=== PATIENT | female | born 1985 | race Caucasian/White ===

== ENCOUNTER 2019-05-27 06:46 | Outpatient (CLI) | payer BC, MEDICARE | END 2019-05-27 06:47 | disposition home or self-care (01) | LOC: LABBT 06:46 | PROVIDERS: ATTEND Obstetrics & Gynecology | DX: Z01.812 Encounter for preprocedural laboratory examination (principal); N92.0 Excessive and frequent menstruation with regular cycle | CPT/HCPCS: 84703; 85027; 86850; 86900; 86901 ==

== ENCOUNTER 2019-06-01 05:54 | Day surgery (SDC) | payer BC, MEDICARE ==
[2019-05-27 14:23] VITALS: BMI 24.3
[2019-05-27 15:21] LABS: Hemoglobin 13.7 g/dL (12.0-16.0); Mean Corpuscular HGB CONC 34.2 g/dL (32.0-36.0); Mean Corpuscular Hemoglobin 31.7 pg (27.0-31.0); Mean Corpuscular Volume 92.7 fL (78.0-98.0); Mean Platelet Volume 6.9 fL (7.4-10.4); Platelet Count 299 thou/uL (130-400); RBC Distribution Width 10.9 % (11.5-14.5); Red Blood Cell (RBC) Count 4.33 mill/uL (4.20-5.40); White Blood Cell (WBC) Count 8.7 thou/uL (4.8-10.8)
[2019-05-27 15:26] LABS: BHCG - Serum Negative (NEGATIVE); Pregs Control Background? CLEAR/WHITE (CLR/WHITE); Pregs Control Bar Appear? YES (CONTROL BAR)
[2019-06-01] MEDS ORDERED: Famotidine/PF 20 mg/2ml Vial ONE (06:11)
[2019-06-01] MEDS ORDERED: Gabapentin 300 MG CAP ONE (06:11)
[2019-06-01] MEDS ORDERED: CeleCOXIB 100 MG CAP ONE (06:11)
--- NOTE | 2019-06-01 06:35 | HP ---
REASON FOR ADMISSION: Menorrhagia. SCHEDULED PROCEDURE: Total laparoscopic hysterectomy with bilateral salpingectomy. HISTORY OF PRESENT ILLNESS: Ms. Scherer is a 34-year-old, 3, para 2, AB1, spontaneous vaginal delivery x2. A long history of menorrhagia. It has not been responsive to medical management. 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 MATHEMATICS TEACHER HISTORY: as noted. No history of dysplasia. Normal Pap smear in February of 2019. MEDICAL HISTORY: Spastic cerebral palsy. The patient states that she is able to be in a lithotomy position without difficulty. PAST SURGICAL HISTORY: Cholecystectomy. ALLERGIES: NONE. MEDICATIONS: None. SOCIAL HISTORY: Denies tobacco, alcohol, or IV drug abuse. FAMILY HISTORY: Noncontributory. REVIEW OF SYSTEMS: Noncontributory except for menorrhagia. PHYSICAL EXAMINATION: GENERAL: White female, in no acute distress. VITAL SIGNS: 5 feet 1, 132, BMI 25, blood pressure 110/72, pulse 62, respirations 18. HEENT: Within normal limits. LUNGS: Clear to auscultation bilaterally. HEART: Regular rate and rhythm. BREASTS: No masses bilaterally. ABDOMEN: Soft, nontender. No rebound or guarding. Vulva without lesions. Vagina without discharge. Cervix, parous. Uterus anteverted, approximately 8-week size, boggy, consistent with adenomyosis. EXTREMITIES: No clubbing, cyanosis, or edema. Positive hypertonicity. IMPRESSION: Menorrhagia, normal Pap smear, dysmenorrhea, desiring definitive surgical management. PLAN: Total laparoscopic hysterectomy, bilateral salpingectomy, and appropriate antibiotic and DVT prophylaxis. The patient's pain medications were addressed at preoperative exam and sent to pharmacy. Job ID: [id number]
[2019-06-01] MEDS ORDERED: Fentanyl 100 MCG/2 ML VIAL ONE ×3 (06:40→10:21)
[2019-06-01] MEDS ORDERED: Bupivacaine PF 0.5% 30 ML VIAL ONE (07:04)
[2019-06-01] MEDS ORDERED: Lidocaine 1% w/Epinephrine 1:100K 20 ML VIAL ONE (07:04)
[2019-06-01] MEDS ORDERED: Promethazine HCl 25 MG/ML VIAL IM PRN ×2 (07:09→09:05)
[2019-06-01] MEDS ORDERED: Promethazine HCl 25 MG/ML VIAL SLOW IVP PRN (07:09)
[2019-06-01] MEDS ORDERED: Ondansetron HCl/PF 4 MG/2 ML Vial IVP PRN (07:09)
[2019-06-01] MEDS ORDERED: Midazolam HCl 2 mg/2 ml Vial ONE (07:19)
[2019-06-01] MEDS ORDERED: Bisacodyl 10 MG SUPP PR PRN (09:05)
[2019-06-01] MEDS ORDERED: diphenhydrAMINE 25 MG CAP PO PRN (09:05)
[2019-06-01] MEDS ORDERED: Simethicone Chewable 80 MG TAB PO PRN (09:05)
[2019-06-01] MEDS ORDERED: Ondansetron PF 4 MG/2 ML Vial IVP PRN (09:05)
[2019-06-01] MEDS ORDERED: Morphine 4 MG/ML VIAL SLOW IVP PRN (09:05)
[2019-06-01] MEDS ORDERED: Zolpidem Tartrate 5 MG TAB PO PRN (09:05)
[2019-06-01] MEDS ORDERED: HYDROcodone/Acetaminophen 5/325 mg Tablet PO PRN (09:05)
[2019-06-01] MEDS ORDERED: Dicyclomine 10 MG CAP PO PRN (09:07)
--- NOTE | 2019-06-01 09:59 | OP ---
DATE OF PROCEDURE: 06/01/2019 PREOPERATIVE DIAGNOSES: 1. Dysmenorrhea. 2. Menorrhagia. 3. Pelvic pain. POSTOPERATIVE DIAGNOSES: 1. Dysmenorrhea. 2. Menorrhagia. 3. Pelvic pain. 4. Endometriosis of the uterosacral ligaments bilaterally. PROCEDURES PERFORMED: 1. Total laparoscopic hysterectomy. 2. Bilateral salpingectomy. SURGEON: Man Rao MD. PAPER INSPECTOR: Laura Pratt PA-C. MEDICATIONS: 2 g Ancef preincision. DVT PROPHYLAXIS: SCDs. ANESTHESIA: General endotracheal. ESTIMATED BLOOD LOSS: Less than 100 mL. COMPLICATIONS: None. DRAINS: Chris to gravity. OPERATIVE FINDINGS: 1. Approximately 6- to 8-week size uterus. 2. Bilateral fallopian tubes. 3. Endometriosis of uterosacral ligaments on the patient's left. 4. Hemostasis, clear urine. COUNTS: Correct at the end of the procedure. DISPOSITION: Recovery room in good condition. DESCRIPTION OF THE OPERATIVE PROCEDURE: After obtaining appropriate informed consent, the patient was taken to the operating room where general endotracheal anesthesia was achieved without difficulty. The patient was prepped and draped in the dorsal lithotomy position in [facility]. A weighted speculum was placed in vagina. Cervix was identified and grasped with single-toothed tenaculum and sounded to 8 cm. ODILIA manipulator with a 4 cm vaginal supervisor sandblaster and 6 cm uterine obturator were placed without difficulty. Chris catheter was placed, 200 mL of clear urine, placed on a 60 mL syringe onto the operative field. Engine Service Repairer changed his gloves and turned attention to abdominal portion of the procedure. A 5 mL of Marcaine was injected at the base of umbilicus. A 12 mm skin incision was made. Veress needle was placed inside the abdominal cavity. Insufflation was carried out with carbon dioxide for a maximum pressure of 15. Insufflation completed and a 12 mm Burak trocar was placed without difficulty. The patient was placed in Trendelenburg position. A small amount of omental adhesions in the right lower quadrant was encountered and taken down using sharp scissors. Da Urszula ports placed lateral to the epigastric vessels 8 mm as well as an 11 mm geriatric nurse assistant port in the right upper quadrant. Da Urszula robot docked with monopolar scissors in the right hand and bipolar fenestrated forceps in the left. Mesosalpinx on the left was coagulated, transected, and the fallopian tube excised and removed from the abdominal cavity, then the utero-ovarian, broad, and round ligaments were coagulated and transected. These were taken down to the level of the internal cervical os. The vesicouterine peritoneum was incised sharply off the anterior cervix and upper vagina and the bladder dissected off well below the level of the cervical vaginal interface. Skeletonization of the uterine vessels carried out on the left and these were coagulated and transected. Attention was turned to the right where the identical procedure was carried out removing the fallopian tube, coagulating, and transecting the utero-ovarian, broad, round and down the level of the internal cervical os, skeletonizing uterine vessels, coagulating, and transecting. Once this has been carried out, noted to be well lateral to the surgical field. The vagina was entered anteriorly at 12 o'clock and extended from 12 to 3 and 12 to 9, then from 6 to 3 and 6 to 9. Area of endometriosis on the left uterosacral ligament was identified, coagulated, and excised. Specimen was amputated from the upper vagina and pulled into the vagina to maintain pneumoperitoneum. Suction irrigation was carried out. Bladder was backfilled to assure that was away from the cuff closure. Vaginal cuff was closed using a running continuous 2-0 Stratafix PDS from right to left and then back to right in a 2-layer closure technique. Suction irrigation was carried out. Good hemostasis was noted. Tisseel was applied across all surgical lujan. Reinspection of the area of omentum that had been taken down to the anterior abdominal wall revealed no bleeding. The da Urszula instruments were removed. The robot was undocked. The abdomen was desufflated of carbon dioxide. Trocars were removed x4. Fascia was reapproximated at the umbilicus using a 0 Vicryl on a UR5 needle. Skin was reapproximated x4 using 4-0 Monocryl and Dermabond. Clear urine was still noted. The vagina was inspected and noted to be dry and intact. The patient awakened and extubated to recovery room in good condition. Job ID: [id number]
[2019-06-01] MEDS ORDERED: Lidocaine 1% PF 5 ML VIAL ONE (10:05)
[2019-06-01] MEDS ORDERED: Dexamethasone 20 MG/5 ML VIAL ONE (10:05)
[2019-06-01] MEDS ORDERED: Rocuronium Bromide 10 MG/ML (10ML VIAL) ONE (10:05)
[2019-06-01] MEDS ORDERED: PHENYLEPHRINE-NS 100 MCG/ML 10 ML SYRINGE ONE (10:05)
[2019-06-01] MEDS ORDERED: Glycopyrrolate 0.2 MG/ML 5 ML SYRINGE ONE (10:05)
[2019-06-01] MEDS ORDERED: Ondansetron PF 4 MG/2 ML Vial ONE (10:05)
[2019-06-01] MEDS ORDERED: PROPOFOL 200 MG/20 ML VIAL ONE (10:05)
[2019-06-01] MEDS: Ketorolac Tromethamine 30 MG/ML VIAL IVP SCH ×2 (12:28→17:43)
[2019-06-01] MEDS: HYDROcodone/Acetaminophen 5/325 mg Tablet PO PRN ×2 (17:42→22:17)
[2019-06-01] MEDS: Sodium Chloride 0.9% 1,000 ML IV SCH ×2 (17:47→19:43)
[2019-06-02] MEDS: Ketorolac Tromethamine 30 MG/ML VIAL IVP SCH (00:05)
[2019-06-02] MEDS: Sodium Chloride 0.9% 1,000 ML IV SCH (02:16)
[2019-06-02] MEDS ORDERED: Ibuprofen 800 MG TAB PO SCH (06:00)
[2019-06-02 06:01] LABS: Hemoglobin 11.3 g/dL (12.0-16.0); Mean Corpuscular HGB CONC 34.5 g/dL (32.0-36.0); Mean Corpuscular Hemoglobin 32.4 pg (27.0-31.0); Mean Corpuscular Volume 93.8 fL (78.0-98.0); Mean Platelet Volume 6.8 fL (7.4-10.4); Platelet Count 256 thou/uL (130-400); White Blood Cell (WBC) Count 7.3 thou/uL (4.8-10.8)
[2019-06-02 07:43] VITALS: BP 105/55; TEMP 98.5
--- NOTE | 2019-06-02 09:56 | DIS ---
DATE OF ADMISSION: 06/01/2019 DATE OF DISCHARGE: 06/02/2019 TIME OF SERVICE: 7:30. PRINCIPAL IN-HOSPITAL PROCEDURE: Total laparoscopic hysterectomy with bilateral salpingectomy. SUMMARY OF HOSPITAL COURSE: The patient underwent the aforementioned procedure on 06/01. It was uncomplicated with minimal blood loss. Postoperatively, the patient's Chris was removed. She was voiding well. She had 1500 mL of urine output postoperatively and has voided multiple times postoperatively. She is taking p.o. intake well. PHYSICAL EXAMINATION: VITAL SIGNS: Temperature 98.6, pulse 88, respirations 20, blood pressure 98/51, T-max 98.6. LUNGS: Clear to auscultation bilaterally. HEART: Regular rate and rhythm. ABDOMEN: Soft and nontender with bowel sounds in all 4 quadrants. Incisions are intact and dry. EXTREMITIES: Without clubbing, cyanosis, or edema and her perineum is dry. The patient has mild complaints of right shoulder pain, likely referred from intraperitoneal insufflation. LABORATORY DATA: Hematocrit 32.9%, hemoglobin 11.3, normal white count, normal platelet count. IMPRESSION: The patient is doing well, status post total laparoscopic hysterectomy, postoperative day #1, with normal hematocrit and normal vital signs, voiding and tolerating p.o. PLAN: Discharge home. The patient already has discharge medications for [place] and ibuprofen. We will follow up at [facility] [place] in 2 and 6 weeks. ER precautions. Job ID: [id number]
== END 2019-06-02 10:17 | disposition home or self-care (01) ==
LOC: SDC 05:54 → 3SE 09:02 → SDC 06-02 10:17
PROVIDERS: ATTEND Obstetrics & Gynecology
PROC: 0UT94ZZ Resection of Uterus, Percutaneous Endoscopic Approach (ICD-10-PCS; principal; 2019-06-02)
PROC: 0UT74ZZ Resection of Bilateral Fallopian Tubes, Percutaneous Endoscopic Approach (ICD-10-PCS; principal; 2019-06-02)
DX: N80.0 Endometriosis of uterus (principal); N72 Inflammatory disease of cervix uteri
CPT/HCPCS: 36415; 84703; 85027; 86850; 86900; 86901; 88307; J0690; J1100; J1885; J2001; J2250; J2405; J2704; J3010; S0020; S0028

== ENCOUNTER 2019-06-09 14:26 | Emergency (ER) | payer MEDICARE, BC ==
[2019-06-09] MEDS ORDERED: methylPREDNISolone Sod Succ/PF 125 MG/2 ML VIAL ONE (15:23)
[2019-06-09] MEDS ORDERED: Famotidine/PF 20 mg/2ml Vial ONE (15:23)
== END 2019-06-09 16:43 | disposition home or self-care (01) ==
LOC: ERS 14:26
DX: L50.9 Urticaria, unspecified (principal); K59.00 Constipation, unspecified; G80.9 Cerebral palsy, unspecified; F41.9 Anxiety disorder, unspecified; Z79.899 Other long term (current) drug therapy
CPT/HCPCS: 96361; 96374; 96375; J2930; S0028